=== PATIENT | female | born 1980 | race Caucasian/White ===

== ENCOUNTER → 2021-01-05 | Outpatient (CLI) | payer BC, OTHER ==
[~2021-01-05] MED LIST: ALDACTONE50 MG PO; ARMOUR THYROID60 MG PO; CALCIUM 600+D3 PO; COLACE 100MG C100 MG PO; COZAAR50 MG PO; FIBER PO; GLUCOPHAGE500 MG PO; NORCO 10-325 T1 EACH PO; VITAMIN D250000 UNIT PO; [UNRECOGNIZED DRUG - OTHER] TOP; [UNRECOGNIZED DRUG - OTHER] TOP
[2021-01-05 06:05] LABS: HEMOGLOBIN 13.2 gm/dl (12.3-15.3); RED BLOOD COUNT 4.3 M/UL (4.00-5.10); WHITE BLOOD COUNT 6.2 K/UL (4.5-11.0)
[2021-01-05 06:23] LABS: BUN/CREATININE RATIO 20 (0-10)
[2021-01-06 10:13] LABS: PROGESTERONE 5.9 ng/mL (.); TESTOSTERONE, SERUM 67 ng/dL (8-48)
[2021-01-11 14:14] LABS: TESTOSTERONE, FREE, DIRECT 3.8 pg/mL (0.0-4.2)
[2021-01-13 08:14] LABS: ESTROGENS, TOTAL 175 pg/mL (.)
== END ==
LOC: LAB 05:15
PROVIDERS: Nurse Practitioner Psychiatric/Mental Health
DX: R53.83 Other fatigue (principal); R63.5 Abnormal weight gain; R14.0 Abdominal distension (gaseous); E11.9 Type 2 diabetes mellitus without complications; L65.9 Nonscarring hair loss, unspecified; R23.2 Flushing; L98.8 Other specified disorders of the skin and subcutaneous tissue
CPT/HCPCS: 80053; 80061; 82672; 83036; 84144; 84402; 84403; 84439; 84443; 84481; 85027

== ENCOUNTER → 2021-04-21 | Outpatient (CLI) | payer BC, OTHER ==
[2021-04-21 06:24] LABS: HEMOGLOBIN 12.7 gm/dl (12.3-15.3); RED BLOOD COUNT 4.23 M/UL (4.00-5.10)
[2021-04-21 06:50] LABS: BUN/CREATININE RATIO 25 (0-10)
[2021-04-22 08:09] LABS: PROGESTERONE 1.4 ng/mL (.)
[2021-04-27 04:09] LABS: % FREE TESTOSTERONE (DIALYSIS) 0.8 % (.)
== END ==
LOC: LAB 05:52
PROVIDERS: Nurse Practitioner Psychiatric/Mental Health
DX: R53.83 Other fatigue (principal); R63.5 Abnormal weight gain; R61 Generalized hyperhidrosis; M79.89 Other specified soft tissue disorders; E11.9 Type 2 diabetes mellitus without complications
CPT/HCPCS: 80053; 80061; 82627; 82672; 83036; 84144; 84402; 84403; 84439; 84443; 84481; 85025; 85027